=== PATIENT | male | born 1980 | race American Indian/Alaskan Native ===

== ENCOUNTER 2018-07-20 07:15 | Emergency (ER) | payer SELFPAY ==
--- NOTE | 2018-07-20 08:14 | Emergency Department Report ---
ED Lower Extremity HPI - General Chief Complaint: Extremity Injury, Lower Stated Complaint: LEFT FOOT PAIN Time Seen by Provider: 07/20/18 08:12 Source: patient Mode of arrival: Ambulatory Limitations: No Limitations - History of Present Illness Initial Comments: This is a 38-year-old male here complaining of pain mostly to his left foot at the heel of his foot. He denies any injury. He has been having pain for over 2 weeks that is 8 out of 10 but also reports swelling to his legs. Denies any history of blood clots. Denies any nausea or vomiting. Denies any chest pain or shortness of breath. Patient also reports his blood pressure is elevated and he was of clonidine 0.2 mg twice daily but he has not gotten to see a primary care doctor since January 2018 so stopped taking his blood pressure medication. For chills or nausea or vomiting. No [id number] medication taken. Pain is worse to the left foot. Pain worse walk-in. No alleviating factors. Denies any recent long distance travel by car or airplane. He said he walks a lot. History of high blood pressure. MD Complaint: other (lower extremity pain) Onset/Timin -: week(s) Injury: Leg: Right, Left (swollen and pain), Foot: Left (pain) Type of Injury: unknown Place: street/outdoors Severity: severe Improves With: nothing Worsens With: weight bearing, movement Context: walking Associated Symptoms: swelling, ambulatory. denies: numbness, tingling, unable to bear weight, able to partially bear weight Treatments Prior to Arrival: other (none) - Related Data Previous Rx's Medication Instructions Recorded Last Taken Type Amlodipine Besylate [Norvasc] 5 mg PO QDAY 30 Days #30 tablet 07/20/18 Unknown Rx Ibuprofen [Motrin] 600 mg PO Q8H PRN #12 tablet 07/20/18 Unknown Rx hydroCHLOROthiazide [HCTZ] 25 mg PO QDAY 30 Days #30 tablet 07/20/18 Unknown Rx Allergies Allergy/AdvReac Type Severity Reaction Status Date / Time No Known Allergies Allergy Verified 07/20/18 07:27 ED Review of Systems ROS: Stated complaint: LEFT FOOT PAIN Other details as noted in HPI Constitutional: denies: chills, fever Respiratory: denies: cough, shortness of breath, SOB with exertion, SOB at rest , wheezing Cardiovascular: denies: chest pain, palpitations, edema, syncope Gastrointestinal: denies: nausea, vomiting Musculoskeletal: arthralgia. denies: back pain, joint swelling Skin: denies: rash, lesions Neurological: denies: headache, weakness, paresthesias, abnormal gait, vertigo ED Past Medical Hx - Past Medical History Previous Medical History?: Yes Hx Hypertension: Yes - Surgical History Past Surgical History?: No - Family History Family history: hypertension - Social History Smoking Status: Current Every Day Smoker Substance Use Type: Alcohol - Medications Home Medications: Home Medications Medication Instructions Recorded Confirmed Last Taken Type Amlodipine Besylate [Norvasc] 5 mg PO QDAY 30 Days #30 tablet 07/20/18 Unknown Rx Ibuprofen [Motrin] 600 mg PO Q8H PRN #12 tablet 07/20/18 Unknown Rx hydroCHLOROthiazide [HCTZ] 25 mg PO QDAY 30 Days #30 tablet 07/20/18 Unknown Rx ED Physical Exam - General Limitations: No Limitations General appearance: alert, in no apparent distress - Head Head exam: Present: atraumatic, normocephalic, normal inspection - Eye Eye exam: Present: normal appearance, PERRL, EOMI Pupils: Present: normal accommodation - ENT ENT exam: Present: normal exam, normal orophraynx, mucous membranes moist, TM's normal bilaterally, normal external ear exam - Neck Neck exam: Present: normal inspection, full ROM. Absent: tenderness, lymphadenopathy - Respiratory Respiratory exam: Present: normal lung sounds bilaterally. Absent: respiratory distress, chest wall tenderness - Cardiovascular Cardiovascular Exam: Present: regular rate, normal rhythm, normal heart sounds. Absent: systolic murmur, diastolic murmur - GI/Abdominal GI/Abdominal exam: Present: soft, normal bowel sounds. Absent: distended, tenderness, guarding, rebound, rigid - Extremities Exam Extremities exam: Present: normal inspection, full ROM, other (mild swelling to bilateral lower extremity including distal legs and both feet.). Absent: calf tenderness - Expanded Lower Extremity Exam Left Hip exam: Present: normal inspection, full ROM Knee exam: Present: normal inspection, full ROM, full knee extension. Absent: tenderness, swelling, abrasion, laceration, ecchymosis, deformity, crepidus, dislocation, erythema, effusion Lower Leg exam: Present: full ROM, swelling (varicosities noted to distal leg). Absent: normal inspection, tenderness, abrasion, laceration, ecchymosis, deformity, crepidus, dislocation, erythema, palpable cord, Pacheco's sign Ankle exam: Present: full ROM, swelling. Absent: normal inspection, tenderness , abrasion, laceration, ecchymosis, deformity, crepidus, dislocation, erythema Foot/Toe exam: Present: full ROM, swelling. Absent: normal inspection, tenderness, abrasion, laceration, ecchymosis, deformity, crepidus, dislocation, erythema, amputation, puncture wound, foreign body, calcaneal tenderness, tenderness at base of 5th metatarsal, nail avulsion, subungual hematoma Neuro vascular tendon exam: Absent: no vascular compromise, pulse deficit, abnormal cap refill, motor deficit, sensory deficit, tendon deficit, pallor, abnormal 2-point discrimination, decreased fine/light touch, foot drop, peroneal nerve deficit, significant pain with passive ROM of distal joint Gait: Positive: observed and normal Right Hip exam: Present: normal inspection, full ROM, pelvic stability. Absent: tenderness, swelling, abrasion, laceration, ecchymosis, deformity, crepidus, dislocation, erythema, shortening Upper Leg exam: Present: normal inspection, full ROM. Absent: tenderness, swelling, abrasion, laceration, ecchymosis, deformity, crepidus, dislocation, erythema Knee exam: Present: normal inspection, full ROM, full knee extension. Absent: tenderness, swelling, abrasion, laceration, ecchymosis, deformity, crepidus, dislocation, erythema, effusion Lower Leg exam: Present: full ROM, swelling (with varicosities distal leg). Absent: normal inspection, tenderness, abrasion, laceration, ecchymosis, deformity, crepidus, dislocation, erythema, palpable cord, Pacheco's sign Ankle exam: Present: full ROM, swelling. Absent: normal inspection, tenderness , abrasion, laceration, ecchymosis, deformity, crepidus, dislocation, erythema Foot/Toe exam: Present: normal inspection, swelling. Absent: full ROM, tenderness, abrasion, laceration, ecchymosis, deformity, crepidus, dislocation, erythema, amputation, puncture wound, foreign body, calcaneal tenderness, tenderness at base of 5th metatarsal, nail avulsion, subungual hematoma Neuro vascular tendon exam: Present: no vascular compromise. Absent: pulse deficit, abnormal cap refill, motor deficit, sensory deficit, tendon deficit, extremity cold to touch, pallor, abnormal 2-point discrimination, decreased fine /light touch, foot drop, peroneal nerve deficit, significant pain with passive ROM of distal joint Gait: Positive: observed and normal - Back Exam Back exam: Present: normal inspection, full ROM, other (ambulates without any difficulties). Absent: tenderness, CVA tenderness (R), CVA tenderness (L), muscle spasm, paraspinal tenderness, vertebral tenderness, rash noted - Neurological Exam Neurological exam: Present: alert, oriented X3, normal gait - Psychiatric Psychiatric exam: Present: normal affect, normal mood - Skin Skin exam: Present: warm, dry, intact, normal color. Absent: rash ED Course Vital Signs 07/20/18 07/20/18 07/20/18 07:22 08:27 09:33 Temperature 98.3 F Pulse Rate 65 65 64 Respiratory 17 18 Rate Blood Pressure 165/109 165/109 Blood Pressure 156/112 [Right] O2 Sat by Pulse 100 100 Oximetry 07/20/18 10:16 Temperature Pulse Rate 60 Respiratory Rate Blood Pressure Blood Pressure 144/98 [Right] O2 Sat by Pulse Oximetry - Reevaluation(s) Reevaluation #1: 07/20/18 08:34 Patient given Motrin 800 mg by mouth for pain to lower extremities, clonidine 0.2 mg for elevated blood pressure and reevaluate. Reevaluation #2: 07/20/18 10:19 Patient beverages better status post the clonidine. ED Lower Extremity MDM - Radiology Data Radiology results: report reviewed Preliminary bilateral lower extremity venous duplex ultrasound dictated by radiologist and awaiting final report. See report below BLE VENOUS DUPLEX COMPLETED. VAS LAB PRELIMINARY REPORT; NO EVIDENCE OF DVT/SVT NOTED IN VESSELS/SEGMENTS EXAMINED, BLE. PHYSICIANS REPORT TO FOLLOW....(RSK) Initialized on 07/20/18 09:15 - END OF NOTE - Medical Decision Making This is a 38-year-old male here reports that he has been having pain to his lower extremities mostly to left foot. He reports that he walks a lot. His also reports that he has high blood pressure and that he takes clonidine 0.2 mg twice a day but has not taken since January because he lost his primary care physician. Patient was seen and examined by myself. He was found to have bilateral distal leg swelling with varicosities. He also has swelling to his ankle and his feet with no pain with palpation but patient reports pain to his left heel walking. Patient denies any history of blood clots or any personal history of breast clots. Patient had bilateral lower extremity venous Doppler ultrasound done due to varicosities, swelling encompassing the pain. Patient had bilateral lower extremity venous Doppler studies and preliminary report with BLE VENOUS DUPLEX COMPLETED. VAS LAB PRELIMINARY REPORT; NO EVIDENCE OF DVT/SVT NOTED IN VESSELS/SEGMENTS EXAMINED, BLE. PHYSICIANS REPORT TO FOLLOW....(RSK). Patient with bilateral lower extremity swelling suspect from venous insufficiency due to varicosities. He is also plantar fasciitis left foot. I discussed x-ray results and diagnostic patient along with treatment plan and is in agreement. I also discussed that he needs to follow-up with vascular and primary care. I refer patient to Dr. Henderson vascular and [facility] as he does not have a primary care. Patient also has elevated blood pressure with history of high blood pressure. He was given clonidine 0.2 mg of emergency room and blood pressure is stabilized. I discussed the patient since he was on medication in the past. I discussed with patient that i will put him on HCTZ and Norvasc and he needs to keep a log his blood pressure and follow-up with [facility] in 3-5 days. I discussed with him that he needs to elevate his legs when he said Anticipate Motrin for increased pain. He was given Motrin milligrams by mouth and emergency room for pain which relieved his pain. Patient discharged home in stable condition, vital signs stable afebrile and given prescription for Norvasc, HCTZ and Motrin Critical care attestation.: If time is entered above; I have spent that time in minutes in the direct care of this critically ill patient, excluding procedure time. ED Disposition Clinical Impression: Plantar fasciitis of left foot, Elevated blood pressure reading with diagnosis of hypertension, Swelling of both lower extremities Varicose vein of leg Qualifiers: Varicose vein complication: asymptomatic Laterality: bilateral Qualified Code(s ): I83.93 - Asymptomatic varicose veins of bilateral lower extremities Disposition: TO HOME OR SELFCARE Is pt being admited?: No Does the pt Need Aspirin: No Condition: Stable Instructions: Hypertension (ED), Varicose Veins (ED), Leg Edema (ED), Plantar Fasciitis (ED) Additional Instructions: Please follow up with vascular regarding varicose veins Follow-up with [facility] for primary care. Keep a lot a few blood pressure and take to primary care doctor visit If his symptoms worsen, return to emergency room Prescriptions: Amlodipine Besylate [Norvasc] 5 mg PO QDAY 30 Days #30 tablet hydroCHLOROthiazide [HCTZ] 25 mg PO QDAY 30 Days #30 tablet Ibuprofen [Motrin] 600 mg PO Q8H PRN #12 tablet PRN Reason: Pain Referrals: [facility] [Outside] - 3-5 Days DAY,ANABEL Ruth MD [Staff Physician] - 3-5 Days
[2018-07-20] MEDS ORDERED: CATAPRES PO ONE (08:20)
[2018-07-20] MEDS ORDERED: MOTRIN PO ONE (08:20)
[2018-07-20 10:16] VITALS: BP 144/98
== END 2018-07-20 10:43 | disposition home or self-care (01) ==
LOC: ED 07:15
DX: I83.93 Asymptomatic varicose veins of bilateral lower extremities (principal); M72.2 Plantar fascial fibromatosis; I10 Essential (primary) hypertension; F17.200 Nicotine dependence, unspecified, uncomplicated
CPT/HCPCS: 93970; 99283

== ENCOUNTER 2018-08-05 12:02 | Emergency (ER) | payer SELFPAY ==
--- NOTE | 2018-08-05 12:31 | Emergency Department Report ---
- General Chief Complaint: Wound/Laceration Stated Complaint: LEG HEMORRHAGE/VARICOSE VEINS Time Seen by Provider: 08/05/18 12:26 Source: patient, EMS Mode of arrival: Stretcher Limitations: No Limitations - History of Present Illness Initial Comments: Patient presented in the ED with bleeding right lower leg varicose vein which started spontaneously this morning. -: Sudden Location: other (Right Leg) Extremity Location: Right: Lower Leg Place: home Associated Symptoms: none - Related Data Previous Rx's Medication Instructions Recorded Last Taken Type Amlodipine Besylate [Norvasc] 5 mg PO QDAY 30 Days #30 tablet 07/20/18 Unknown Rx Ibuprofen [Motrin] 600 mg PO Q8H PRN #12 tablet 07/20/18 Unknown Rx hydroCHLOROthiazide [HCTZ] 25 mg PO QDAY 30 Days #30 tablet 07/20/18 Unknown Rx Allergies Allergy/AdvReac Type Severity Reaction Status Date / Time No Known Allergies Allergy Verified 07/20/18 07:27 ED Review of Systems ROS: Stated complaint: LEG HEMORRHAGE/VARICOSE VEINS Other details as noted in HPI Comment: All other systems reviewed and negative Constitutional: denies: chills, fever Eyes: denies: eye pain ENT: denies: ear pain Respiratory: denies: cough, orthopnea, shortness of breath Cardiovascular: denies: chest pain, palpitations, dyspnea on exertion, orthopnea Endocrine: no symptoms reported Gastrointestinal: denies: abdominal pain, nausea, vomiting, diarrhea Genitourinary: denies: urgency, dysuria, frequency Musculoskeletal: denies: back pain, joint swelling Skin: denies: rash, lesions Neurological: denies: headache, weakness, numbness Psychiatric: denies: anxiety, depression Hematological/Lymphatic: denies: easy bleeding, easy bruising ED Past Medical Hx - Past Medical History Hx Hypertension: Yes - Social History Smoking Status: Current Every Day Smoker Substance Use Type: Alcohol - Medications Home Medications: Home Medications Medication Instructions Recorded Confirmed Last Taken Type Amlodipine Besylate [Norvasc] 5 mg PO QDAY 30 Days #30 tablet 07/20/18 Unknown Rx Ibuprofen [Motrin] 600 mg PO Q8H PRN #12 tablet 07/20/18 Unknown Rx hydroCHLOROthiazide [HCTZ] 25 mg PO QDAY 30 Days #30 tablet 07/20/18 Unknown Rx ED Physical Exam - General Limitations: No Limitations General appearance: alert, in no apparent distress - Head Head exam: Present: atraumatic, normocephalic - Eye Eye exam: Present: normal appearance, PERRL, EOMI Pupils: Present: normal accommodation - ENT ENT exam: Present: normal exam, normal orophraynx, mucous membranes moist - Neck Neck exam: Present: normal inspection, full ROM. Absent: tenderness - Respiratory Respiratory exam: Present: normal lung sounds bilaterally. Absent: respiratory distress, wheezes, rales, rhonchi, stridor - Cardiovascular Cardiovascular Exam: Present: regular rate, normal rhythm, normal heart sounds - GI/Abdominal GI/Abdominal exam: Present: soft, normal bowel sounds. Absent: distended, tenderness, guarding, rebound, rigid - Extremities Exam Extremities exam: Present: other (Right loer leg varicose vein has stopped bleeding spontenously.) - Back Exam Back exam: Present: normal inspection, full ROM. Absent: tenderness, CVA tenderness (R), CVA tenderness (L) - Neurological Exam Neurological exam: Present: alert, oriented X3, CN II-XII intact - Psychiatric Psychiatric exam: Present: normal affect, normal mood - Skin Skin exam: Present: warm, dry, intact, normal color. Absent: rash ED Course Vital Signs 08/05/18 08/05/18 12:05 14:29 Temperature 98.5 F Pulse Rate 72 83 Respiratory 16 18 Rate Blood Pressure 160/110 Blood Pressure 156/84 [Left] O2 Sat by Pulse 99 100 Oximetry ED Medical Decision Making - Lab Data Result diagrams: 08/05/18 13:02 08/05/18 13:02 - Medical Decision Making Right Leg Varicose vein with bleeding controlled. Critical care attestation.: If time is entered above; I have spent that time in minutes in the direct care of this critically ill patient, excluding procedure time. ED Disposition Clinical Impression: Varicose vein of leg Qualifiers: Varicose vein complication: unspecified Laterality: right Qualified Code(s): I83.91 - Asymptomatic varicose veins of right lower extremity Disposition: - TO HOME OR SELFCARE Is pt being admited?: No Does the pt Need Aspirin: No Condition: Stable Instructions: Varicose Veins (ED) Additional Instructions: Follow up with the Vascular Surgeon Dr Farooq. Return to the ED if your condition worsens. Referrals: PRIMARY CARE, [Primary Care Provider] - 3-5 Days ANSON FAROOQ MD [Staff Physician] - 3-5 Days Time of Disposition: 14:05
[2018-08-05] MEDS ORDERED: SILVER NITRATE TP ONE (12:42)
[2018-08-05] MEDS ORDERED: VASELINE LIP THERAPY TP ONE (13:18)
[2018-08-05 13:20] LABS: Basophils # (Auto) 0.1 K/mm3 (0.0-0.1); Eosinophils % (Auto) 0.6 % (0.0-4.3); Hematocrit 42.7 % (35.5-45.6); Hemoglobin 13.8 gm/dl (11.8-15.2); Lymphocytes # (Auto) 1.4 K/mm3 (1.2-5.4); Lymphocytes % (Auto) 22.4 % (13.4-35.0); Mean Corpuscular HGB Conc 32 % (32-34); Mean Corpuscular Volume 71 fl (84-94); Monocytes # (Auto) 0.5 K/mm3 (0.0-0.8); Monocytes % (Auto) 7.6 % (0.0-7.3); Platelet Count 248 K/mm3 (140-440); Red Cell Distribution Width 17.7 % (13.2-15.2)
[2018-08-05 13:25] LABS: Mean Corpuscular Hemoglobin 23 pg (28-32)
[2018-08-05 13:33] LABS: Alanine Aminotransferase 18 units/L (7-56); Albumin 3.9 g/dL (3.9-5); BUN/Creatinine Ratio 9; Blood Urea Nitrogen 8 mg/dL (9-20); Calcium 9.3 mg/dL (8.4-10.2); Hemolysis Index 0
[2018-08-05 13:34] LABS: INR 0.99 (0.87-1.13); Partial Thromboplastin Time 25.2 Sec. (24.2-36.6)
[2018-08-05] MEDS ORDERED: K-DUR PO ONE (14:02)
[2018-08-05 14:30] VITALS: BP 156/84
== END 2018-08-05 14:29 | disposition home or self-care (01) ==
LOC: ED 12:02
DX: I83.91 Asymptomatic varicose veins of right lower extremity (principal); I10 Essential (primary) hypertension; F17.200 Nicotine dependence, unspecified, uncomplicated
CPT/HCPCS: 36415; 80053; 85025; 85610; 85730; 99284